=== PATIENT | male | born 1960 | race Caucasian/White ===

== ENCOUNTER 2018-05-24 09:17 | Emergency (ER) | payer MEDICAID, SELFPAY ==
[2018-05-24 09:19] VITALS: BP 130/83; PULSE 73; RESP 12; TEMP 35.8; O2SAT 100; BMI 20.9
[2018-05-24 10:39] LABS: Absolute Lymphocyte Count 0.63 X10^3/ul (0.83-4.51); Absolute Neutrophil Count 3.4 X10^3/uL (2.0-7.7); Basophil# 0.01 X10^3/uL; Basophil% 0.2 % (0-1); Hemoglobin 13.9 g/dl (13.0-16.5); Lymphocyte # 0.63 X10^3/ul (4.0); Lymphocyte % 14.4 % (19-41); Mean Corp Hgb Conc 33.1 g/gl (32-36); Mean Corpuscular Hgb 31.3 pg (27.0-32.0); Mean Corpuscular Volume 94.6 fL (80-94); Monocyte# 0.32 X10^3/uL; Monocyte% 7.3 % (0-10); Neutrophil # 3.43 X10^3/uL (2.7-7.7); Neutrophil % 78.1 % (47-70); Platelet Count 122 K/mm3 (150-450); RBC Distribution Width CV 11.8 % (11.6-14.6); RBC Distribution Width SD 40.2 fl (35.1-43.9); Red Blood Count 4.44 M/mm3 (4.6-6.2); White Blood Count 4.4 K/mm3 (4.4-11.0)
[2018-05-24 10:41] LABS: POSITIVE COUNT NO; POSITIVE DIFFERENTIAL NO; POSITIVE MORPHOLOGY NO
[2018-05-24 10:46] LABS: Bacteria 0 SEEN /hpf (None Seen); Mucous, Urine 0 SEEN /hpf (<or=2+); White Blood Cells 0 SEEN /hpf (0-5)
[2018-05-24 10:48] LABS: Anion Gap 9 (5-15); BUN 30 mg/dL (7-18); BUN/Creat Ratio 31.4 RATIO (10-20); Calcium,Total 8.5 mg/dL (8.5-10.1); Chloride 108 mmol/L (98-107); Creatinine, Serum 0.96 mg/dL (0.70-1.30); EST Glomerular Filtration Rate 86 mL/min (>60); Est Glom Filt Rate - Afr Amer 105 mL/min (>60); Estimated Creatinine Clearance 75.71 ml/min; Glucose 96 mg/dL (74-106); Potassium 4.5 mmol/L (3.5-5.1); Sodium Level 143 mmol/L (136-145)
[2018-05-24 10:51] VITALS: BP 120/81; PULSE 89; RESP 14; O2SAT 100
[2018-05-24 10:58] LABS: Color, Urine Yellow (Yellow); Glucose, Dipstick Normal (Normal); Ketone-Dipstick 15 mg/dl (Negative); Leukocyte Esterase-Dipstick Negative /ul (Negative); Nitrite-Dipstick Negative (Negative); Occult Blood-Urine 250 /ul (Negative); Protein-Dipstick 15 mg/dl (Negative); Urine Bilirubin Dipstick Negative (Negative); Urine Clarity Clear (Clear); Urine Urobilinogen Normal (Normal)
[2018-05-24 11:08] LABS: Red Blood Cells-Urine 25-50 SEEN /hpf (0-5); Squamous Epithelial Cells - UA 0-5 SEEN /hpf (0-5)
--- NOTE | 2018-05-24 11:15 | CT_ITS ---
STUDY: CT ABDOMEN AND PELVIS WITHOUT CONTRAST REASON FOR EXAM: Male, 57 years old. Right flank pain and hematuria. RADIATION DOSAGE (If Supplied By Facility): CTDIvol = ( 6.04 ) mGy, DLP = ( 271.80 ) mGycm TECHNIQUE: Transaxial images were obtained from the dome of the diaphragm to the symphysis pubis without oral contrast, and without intravenous contrast. Sagittal and coronal images were reconstructed. Individualized dose optimization techniques were used for this CT. COMPARISON: None. FINDINGS: The visualized lung bases are unremarkable. The visualized portions of the heart are within normal limits. Normal liver. Normal gallbladder and extrahepatic biliary system. Normal spleen. Normal pancreas. Normal bilateral adrenal glands. There is a 2.4 mm calculus in the lower pole calyx of the right kidney. There is a 3.8 mm calculus at the base of the bladder on the right side suggestive of a recently passed right ureteral calculus. Normal left kidney. Normal visualized stomach. Normal small intestine. Moderate amount of fecal material is seen throughout the colon. The appendix is visualized and appears normal. Normal abdominal aorta. Normal inferior vena cava. Normal retroperitoneum. Normal urinary bladder. Normal abdominal wall. Loss of the normal lumbar lordosis. CT/Abdomen/Pelvis without Cont IMPRESSION: 3.8 mm calculus at the right base of the bladder suggesting a recently passed right ureteral calculus. There is also evidence of a 2.4 mm acquisition the lower pole calyx of the right kidney. Electronically Signed: Jovan Valdez, at 11:58 EST , Service support ,
[2018-05-24 12:00] VITALS: RESP 12
--- NOTE | 2018-05-24 12:28 | ED.VISSUMM ---
- ER Visit Summary Date of Service: 05/24/18 Chief Complaint: Flank pain rectal pain History of Present Illness: The patient is a 57 M who states that for the past several days when he ever he goes to defecate he has had a sharp pain on his anus. He states it feels somewhat better when he pulls the right buttock away. His bowel movements have otherwise been normal. This morning around 7:00 lasting until around 0950 he had a severe right flank pain. He notes the urge to urinate but nothing significant comes out. History of hypothyroidism and osteoporosis. He sees Dr. Alarcon for primary care. Denies any blood in the stool. He denies any blood in the urine but does state that for years she has been told these had microscopic blood in the urine. No fevers. Physical Examination: Afebrile vital signs are stable Gen: Well-nourished well-developed Head: Normocephalic atraumatic Eyes: Perrl EOMI ENT: TMs clear no rhinorrhea moist mucous membranes Neck: Supple no lymphadenopathy no JVD nontender CVS: Regular rate rhythm no murmurs normal S1-S2 Respiratory: No distress clear to auscultation bilaterally chest nontender Abdomen: Soft nontender nondistended normal bowel sounds no masses : In the 11 o'clock position on the rectum appears to be a healing anal fissure. The rectal exam is otherwise unremarkable Back: Nontender Extremity: Nontender no edema Skin: Normal color no rash Neuro: alert orientated ?3 CN II-XII intact normal strength sensation reflexes gait cerebellar Psych: Normal affect normal mood Test Results: CBC and BMP were normal. Urinalysis to him straits 25-[address] of the abdomen pelvis without contrast demonstrates a 3.8 mm calculus most likely representing a passed kidney stone on the right. There is also a 2.4 mm calculus in the kidney. No significant hydronephroureter noted. Emergency Department Course and Treatment: Patient has been pain-free since he has been here. I will write for some Anusol for the healing anal fissure. He is to follow-up with primary care. Impression: 1. Anal fissure 2. Right kidney stone (passed) This note was generated with [employer] dictation software. It may contain incorrect words, spelling, and punctuation that were not noted in review of the chart prior to signing ED Disposition - Plan for ED Patient: Disposition: Home or Assisted Living Instructions: ED Fissure Anal Ch, ED Stone Renal Passed Prescriptions: Hydrocortisone Acetate Cream [Anusol Hc] 1 applic TOPICAL TID PRN PRN #30 g PRN Reason: anal pain Referrals: Morris Sheets MD [Primary Care Provider] - 1 Week if not improving
[2018-05-24 13:03] VITALS: PULSE 89; RESP 16
== END 2018-05-24 13:05 | disposition home or self-care (01) ==
PROVIDERS: Emergency Provider Emergency Medicine; Family Provider Family Medicine; PCP Family Medicine
DX: K60.2 Anal fissure, unspecified (principal); N20.0 Calculus of kidney; E03.9 Hypothyroidism, unspecified; M81.0 Age-related osteoporosis without current pathological fracture
CPT/HCPCS: 74176; 80048; 81001; 85025; 99284; A4216

== ENCOUNTER 2018-05-28 19:09 | Emergency (ER) | payer MEDICAID, SELFPAY ==
[2018-05-28 19:10] VITALS: BP 137/97; PULSE 95; RESP 16; TEMP 36.6; O2SAT 100; BMI 20.7
[2018-05-28 19:42] LABS: Bacteria 0 SEEN /hpf (None Seen); Mucous, Urine 0 SEEN /hpf (<or=2+); Red Blood Cells-Urine 0 SEEN /hpf (0-5); Squamous Epithelial Cells - UA 0 SEEN /hpf (0-5)
[2018-05-28 19:55] LABS: Color, Urine Yellow (Yellow); Glucose, Dipstick Normal (Normal); Ketone-Dipstick 15 mg/dl (Negative); Leukocyte Esterase-Dipstick Negative /ul (Negative); Nitrite-Dipstick Negative (Negative); Occult Blood-Urine Negative /ul (Negative); Protein-Dipstick Negative (Negative); Urine Bilirubin Dipstick Negative (Negative); Urine Clarity Clear (Clear); Urine Urobilinogen Normal (Normal)
[2018-05-28 19:59] LABS: White Blood Cells 0-5 SEEN /hpf (0-5)
--- NOTE | 2018-05-28 20:01 | ED.DCSUM_ITS ---
- ER Visit Summary Date of Service: 05/28/18 Chief Complaint: Right side abdominal pain, dark stools History of Present Illness: The patient is a 57 M patient returns evaluation of intermittent right sided abdominal pain. Was seen here 4 days ago diagnosed with ureteral stone per patient. He states he passed it 2 days ago and collected it. He states there is a stone above that for which he thinks is moving down. No nausea or vomiting. Also reports dark stools for the past week. He states this was mentioned when he was seen in the ED. He states exam performed, noting for sure she was sent home with Anusol. Denies anticoagulation medicines. He takes flaxseed to help with bowel movements. Sto ols are soft. No history of colonoscopy in the past. No family history of colon cancer. No fevers. No dysuria. He was not put on antibiotics. Records reviewed, noted a passed stone in his bladder 3.8 mm. He had a renal stone above that and not additional ureteral stone. He had a negative urine. There is reported healing anal fissure. Physical Examination: General: Alert and oriented ?3, no acute distress HEENT: Normocephalic, atraumatic. Moist mucosa membranes Neck: supple, nontender. Cardiovascular: Regular rate and rhythm, no murmurs Respiratory: Normal breath sounds, symmetric, no distress Abdomen: Soft, nontender, nondistended Rectal: Nonthrombosed hemorrhoid anterior position, there was no active bleeding. There is brown stools, Hemoccult positive Extremities: Nontender, no edema, pulses intact ?4 Neuro: no focal neurological deficits. Test Results: Stone analysis pending. UA: Negative for bladder infection. Emergency Department Course and Treatment: Patient vital signs stable. Stone was sent for analysis, reports other stones inside his kidney, not likely moving down at this point. Urine was negative for blood or infection. His guaiac test was positive with brown stools. He is 57 with no colonoscopy history. No family history of colon cancer per patient. Hemoglobin 13.9, 4 days ago he is ambulating clinically no signs of anemia. I did discuss with on-call surgeon Dr. Mohr will see him as an outpatient Wednesday or Wednesday for outpatient workup. Signs and symptoms discussed to return. All questions were answered. Treatment Plan: [] Disposition: Discharge Impression: 1. Rectal bleed stable 2. Passed kidney stone This note was generated with Dragon dictation software. It may contain incorrect words, spelling, and punctuation that were not noted in review of the chart prior to signing ED Disposition - Plan for ED Patient: Disposition: Home or Assisted Living Diagnosis: Rectal bleed, Past kidney stone Instructions: ED Stone Renal Passed, Evaluating and Treating Rectal Bleeding Referrals: Morris Sheets MD [Primary Care Provider] - Izaiah Daley MD [STAFF PHYSICIAN] - 05/30/18
[2018-05-28 20:48] VITALS: PULSE 91; RESP 16; O2SAT 99
[2018-06-02 20:08] LABS: Ca Oxalate, Monohydrate 90 % (.); Calcium Phosphate 10 % (.); Size 3x3x2 mm (.)
== END 2018-05-28 20:48 | disposition home or self-care (01) ==
PROVIDERS: Emergency Provider Emergency Medicine; Family Provider Family Medicine; PCP Family Medicine
DX: K62.5 Hemorrhage of anus and rectum (principal); N20.0 Calculus of kidney; K64.9 Unspecified hemorrhoids
CPT/HCPCS: 81001; 82274; 82360; 99282

== ENCOUNTER 2018-05-30 09:31 | Outpatient (RCR) | payer SELFPAY | END 2018-06-19 23:59 | LOC: NS 09:31 | PROVIDERS: Family Provider Family Medicine; PCP Family Medicine; Visit Provider Psychiatry & Neurology Neurology | DX: R69 Illness, unspecified (principal); Z71.3 Dietary counseling and surveillance | CPT/HCPCS: 97802 ==

== ENCOUNTER 2018-06-27 09:54 | Outpatient (RCR) | payer MEDICAID, SELFPAY | END 2018-06-27 23:59 | disposition home or self-care (01) | LOC: NS 09:54 | PROVIDERS: Family Provider Family Medicine; PCP Family Medicine; Visit Provider Family Medicine | DX: N20.0 Calculus of kidney (principal); Z71.3 Dietary counseling and surveillance | CPT/HCPCS: 97803 ==

== ENCOUNTER 2018-07-25 10:14 | Outpatient (RCR) | payer MEDICAID, SELFPAY | END 2018-08-19 23:59 | LOC: NS 10:14 | PROVIDERS: Family Provider Family Medicine; PCP Family Medicine; Visit Provider Family Medicine | DX: N20.0 Calculus of kidney (principal) | CPT/HCPCS: 97803 ==

== ENCOUNTER 2019-02-19 03:41 | Emergency (ER) | payer MEDICAID, SELFPAY ==
[2019-02-19 03:42] VITALS: BP 137/93; PULSE 62; RESP 15; TEMP 36.4; O2SAT 100; BMI 20.6
--- NOTE | 2019-02-19 04:08 | EKG12_ITS ---
Test Reason : CP Blood Pressure : / mmHG Vent. Rate : 047 BPM Atrial Rate : 047 BPM P-R Int : 134 ms QRS Dur : 080 ms QT Int : 436 ms P-R-T Axes : 054 046 054 degrees QTc Int : 385 ms Sinus bradycardia Otherwise normal ECG Confirmed by LUIS MIGUEL OVIEDO MD ([id number]), purchase request editor SHARIF KOENIG ([id number]) on 02/20/2019 2:50:57 PM Referred By: BB Confirmed By:LUIS MIGUEL OVIEDO MD
--- NOTE | 2019-02-19 04:09 | ED.DCSUM_ITS ---
History of Present Illness Chief Complaint: Chest Pain Informant: Patient Onset: Hours - 4 Activity at onset: Sleep Timing: Continuous Quality: Sharp Location: Left Chest Current Severity: Moderate Maximum Severity: Moderate Worsened By: - - lying supine Relieved By: - - sitting up Associated Symptoms: Negative for: Nausea, Vomiting, Diaphoresis, Dyspnea, Cough, Fever, Lightheadedness, Acid Reflux, Palpitations Narrative: Awoke with the symptoms. Having trouble going to sleep because every time he lies down he gets worse. States he can feel it a little more if he takes a deep breath but has not noticed a major pleuritic component prior to evaluation. No history of DVT or PE. No recent leg pain or swelling. No recent injuries or muscular overuse. Cannot palpated and reproduce it or achy worse with movement. There is no radiation of the discomfort, no back or arm discomfort. No near syncope or syncope. No recent illnesses. Prior Similar Symptoms: No Recent Illness/Hospitalization: No CVD Risk Factors: Negative for: Hypertension, Diabetes, Hypercholesterolemia, Family History 1' </=55 PE Risk Factors: Negative for: Recent Travel/Surgery, Recenet Immobilization, Prior DVT or PE, Cancer, OCP + Smoking + >/=35 Past Medical History - Allergies and Home Meds Allergies/Adverse Reactions: Allergies No Known Allergies Allergy (Verified 02/19/19 03:45) Primary Care Physician: Morris Sheets MD [Primary Care Provider] - Past Medical History: None Surgical History: no surgical history Lives: Alone Smoking Status: Never smoker Drugs: None Review of Systems General: Denies: Chills, Fever, Sweats Eyes: Denies: Visual changes - bilaterally, Diplopia ENT: Denies: Rhinorrhea, Sore throat Cardiovascular: Reports: Chest pain. Denies: Palpitations Respiratory: Denies: Dyspnea, Cough, Dyspnea on exertion Gastrointestinal: Denies: Abdominal pain, Nausea, Vomiting, Diarrhea, Melena, Hematochezia Genitourinary: Denies: Dysuria, Hematuria, Frequency Musculoskeletal: Denies: Back pain, Swelling, Extremity Pain Skin: Denies: Rash, Wounds Neurological: Denies: Headache, Weakness, Numbness Physical Exam Vital Signs/Narrative: Vital Signs Temp Pulse Resp BP Pulse Ox 02/19/19 03:42 97.6 F L 62 15 137/93 H 100 Inital Vital Signs reviewed: Yes General: Well nourished, Well developed, No Acute Distress Head: Normocephalic, Atraumatic Eyes: Perrl, EOMI ENT: Moist mucous membranes, No rhinorrhea Neck: Supple, Nontender Cardiovascular: Regular rate, Regular rhythm, No murmurs Respiratory: No distress, CTA bilaterally, Chest nontender Abdomen: Soft, Nontender, Nondistended, Normal bowel sounds Back: Nontender, Normal Inspection Extremities: Nontender, No edema. Negative for: Calf Tenderness Skin: Normal color, No rash, No Trauma Neurological: Alert, Oriented x3, Cranial nerves II-XII grossly intact, Normal Strength, Normal Sensation Psychological: Normal affect, Normal Mood Diagnostic/Tx/Re-eval Impressions Chest X-Ray 02/19/19 04:27 IMPRESSION: Normal x-ray examination of the chest for age. Electronically Signed: Crystal Freeman MD at 5:00 EST , Service support , 02/19/19 04:27 Chest PA and Lateral [RAD] Stat Laboratory Results 02/19/19 02/19/19 02/19/19 04:00 04:00 04:00 WBC 4.2 L RBC 4.16 L Hgb 13.0 Hct 39.1 L MCV 94.0 MCH 31.3 MCHC 33.2 RDW Std Deviation 40.2 RDW Coeff of Zoila 11.7 Plt Count 135 L MPV 10.6 Immature Gran % (Auto) 0.200 Neut % (Auto) 37.0 L Lymph % (Auto) 49.6 H [place] % (Auto) 11.8 H Eos % (Auto) 1.2 Baso % (Auto) 0.2 Absolute Neuts (auto) 1.5 L Absolute Lymphs (auto) 2.06 Nucleated RBC % 0 D-Dimer Quant (PE/DVT) 0.30 Sodium 140 Potassium 4.2 Chloride 108 H Carbon Dioxide 27.0 Anion Gap 5 BUN 25 H Creatinine 0.86 Estim Creat Clear Calc 84.98 Est GFR (MDRD) Af Amer 117 Est GFR (MDRD) Non-Af 97 BUN/Creatinine Ratio 28.9 H Glucose 87 Calcium 8.3 L Troponin I < 0.015 - Rhythm Strip Rhythm Strip: Sinus Rhythm Rate: 50 Ectopy: None - EKG Initial EKG Interpretation: No Acute Injury Pattern - Normal EKG, Sinus Bradycardia Treatment: GI Cocktail Repeat Eval: 03/31 TERA Risk: No Positive TERA Elements Score: 0 - Medical Decision Making Heart score is 1 for age only. He prefers not to perform 3-hour delta troponin. I do not feel this is likely acute coronary syndrome/angina. He was given a GI cocktail and he does feel improved afterwards but he cannot tell if the medication did it or not. Sitting up now he states the pain is better and just barely present and not very pleuritic in nature. Differential here includes esophageal disorders, but I see no evidence of pneumomediastinum to suggest perforation, pleurisy and pericarditis are noted possibilities which I discussed with the patient and the recommendation to use ibuprofen if symptoms persist. I see no evidence of pericarditis on his EKG, however there is a spectrum and continue him of EKG changes and the natural progression of that disease. I think at this point he is stable to be discharged and follow-up as an outpatient which she is comfortable doing with the risk of 1.7% of myocardial endpoint/event. ED Disposition - Plan for ED Patient: Disposition: Home or Assisted Living Diagnosis: Left-sided chest pain Instructions: CHEST PAIN, Uncertain Cause Referrals: Morris Sheets MD [Primary Care Provider] - 3-5 Days if not improving
[2019-02-19] MEDS: Mag Hydrox/Al Hydrox/Simeth 30 ML UDC PO (04:15)
[2019-02-19 04:18] LABS: Absolute Lymphocyte Count 2.06 X10^3/uL (0.83-4.51); Absolute Neutrophil Count 1.5 X10^3/uL (2.0-7.7); Basophil# 0.01 X10^3/uL; Basophil% 0.2 % (0-1); Eosinophil# 0.05 X10^3/uL; Eosinophils% 1.2 % (0-5); Hematocrit 39.1 % (40-54); Lymphocyte # 2.06 X10^3/ul (4.0); Lymphocyte % 49.6 % (19-41); Mean Corp Hgb Conc 33.2 g/dL (32-36); Mean Corpuscular Hgb 31.3 pg (27.0-32.0); Mean Platelet Vol. 10.6 fl (6.2-12.0); Monocyte# 0.49 X10^3/uL; Monocyte% 11.8 % (0-10); NRBC Flagged by Analyzer 0 % (0-5); Neutrophil # 1.53 X10^3/uL (2.7-7.7); Platelet Count 135 K/mm3 (150-450); RBC Distribution Width CV 11.7 % (11.6-14.6); RBC Distribution Width SD 40.2 fl (35.1-43.9); Red Blood Count 4.16 M/mm3 (4.6-6.2); White Blood Count 4.2 K/mm3 (4.4-11.0)
--- NOTE | 2019-02-19 04:27 | RAD_ITS ---
STUDY: X-RAY CHEST REASON FOR EXAM: Male, 58 years old. Left-sided chest pain. TECHNIQUE: PA and lateral views of the chest. COMPARISON: None. FINDINGS: The lungs are clear and expanded. There is no demonstrated pleural abnormality. Normal size heart. Normal mediastinum and marlon. Normal visualized pulmonary arteries. Normal visualized aortic arch and descending thoracic aorta. There are mild degenerative changes of the visualized thoracic spine. Normal visualized ribs, clavicles, and shoulders. There is no demonstrated abnormality of the visualized soft tissue structures of the upper abdomen. RAD/Chest PA and Lateral IMPRESSION: Normal x-ray examination of the chest for age. Electronically Signed: Crystal Freeman MD at 5:00 EST , Service support ,
[2019-02-19 04:31] LABS: Anion Gap 5 (5-15); BUN 25 mg/dL (7-18); BUN/Creat Ratio 28.9 RATIO (10-20); Calcium,Total 8.3 mg/dL (8.5-10.1); Chloride 108 mmol/L (98-107); Creatinine, Serum 0.86 mg/dL (0.70-1.30); EST Glomerular Filtration Rate 97 mL/min (>60); Est Glom Filt Rate - Afr Amer 117 mL/min (>60); Estimated Creatinine Clearance 84.98 ml/min; Glucose 87 mg/dL (74-106); Potassium 4.2 mmol/L (3.5-5.1); Sodium Level 140 mmol/L (136-145)
[2019-02-19 05:29] VITALS: BP 137/93; PULSE 60; RESP 15; O2SAT 98
== END 2019-02-19 05:36 | disposition home or self-care (01) ==
PROVIDERS: Emergency Provider Emergency Medicine; Family Provider Family Medicine; PCP Family Medicine
DX: R07.89 Other chest pain (principal)
CPT/HCPCS: 71046; 80048; 84484; 85025; 85379; 93005; 99285

== ENCOUNTER 2020-03-05 01:26 | Emergency (ER) | payer MEDICAID, SELFPAY ==
[2020-03-05 01:26] VITALS: BP 137/88
[2020-03-05 01:27] VITALS: BP 154/86; PULSE 65; RESP 16; TEMP 37; O2SAT 100; BMI 21.1
--- NOTE | 2020-03-05 01:53 | ED.DCSUM_ITS ---
History of Present Illness Chief Complaint: Other, Pain/Inj Informant: Patient Onset: Weeks Context: Gradual Onset Timing: Continuous Current Severity: Moderate Maximum Severity: Moderate Narrative: Patient is a 59-year-old male who presents to the emergency department with complaints of finger discoloration. The patient states this is been going on for a few weeks. He is seen his primary care. He had x-rays done. He states that nothing was found. He states that it initially was just the dorsum of his right third finger. He states now it seems like it is more on his right fifth finger also. He denies any pain. He does not smoke. He does have history of thyroid disease, but no other autoimmune conditions. He states it does seem to get worse in the cold. He denies any change in sensation. He is otherwise been in his normal state of health. Prior similar symptoms: No Recent Illness/Hospitalization: No Past Medical History - Allergies and Home Meds Allergies/Adverse Reactions: Allergies No Known Allergies Allergy (Verified 02/19/19 03:45) Primary Care Physician: Morris Sheets MD [Primary Care Provider] - Prior records reviewed: Yes Past Medical History: - - Thyroid disease Surgical History: no surgical history Smoking Status: Never smoker Review of Systems General: Denies: Chills, Fever, Sweats Eyes: Denies: Visual changes - bilaterally, Diplopia ENT: Denies: Rhinorrhea, Sore throat Cardiovascular: Denies: Chest pain, Palpitations Respiratory: Denies: Dyspnea, Cough, Dyspnea on exertion Gastrointestinal: Denies: Abdominal pain, Nausea, Vomiting, Diarrhea, Melena, Hematochezia Genitourinary: Denies: Dysuria, Hematuria, Frequency Musculoskeletal: Denies: Back pain, Extremity Pain Skin: Denies: Rash, Wounds Neurological: Denies: Headache, Weakness, Numbness Physical Exam Vital Signs/Narrative: Vital Signs Temp Pulse Resp BP Pulse Ox 03/05/20 01:27 98.6 F 65 16 154/86 H 100 03/05/20 01:26 137/88 H Inital Vital Signs reviewed: Yes General: Well nourished, Well developed, No Acute Distress Head: Normocephalic, Atraumatic Eyes: Perrl, EOMI ENT: Moist mucous membranes, No rhinorrhea Neck: Supple, Nontender Cardiovascular: Regular rate, Regular rhythm, No murmurs Respiratory: No distress, CTA bilaterally, Chest nontender Abdomen: Soft, Nontender, Nondistended, Normal bowel sounds Back: Nontender, Normal Inspection Extremities: No edema, Tenderness - Patient has some purple ecchymosis like tension to the dorsum of his right third finger. There is also scant aperients on the dorsum of the right fifth finger. His cap refill is less than 2 seconds. Flexion extension are preserved. Pulses in the hand are normal. Skin: Normal color, No rash Neurological: Alert, Oriented x3, Cranial nerves II-XII grossly intact, Normal Strength, Normal Sensation Psychological: Normal affect, Normal Mood Diagnostic/Tx/Re-eval Abnormal Lab Results 03/05/20 03/05/20 03/05/20 01:55 01:55 01:55 WBC 7.3 RBC 4.07 L Hgb 13.0 Hct 37.9 L MCV 93.1 MCH 31.9 MCHC 34.3 RDW Std Deviation 39.8 RDW Coeff of Zoila 11.8 Plt Count 142 L MPV 11.0 Immature Gran % (Auto) 0.300 Neut % (Auto) 73.7 H Lymph % (Auto) 18.0 L [place] % (Auto) 8.0 Eos % (Auto) 0.0 Baso % (Auto) 0.0 Absolute Neuts (auto) 5.4 Absolute Lymphs (auto) 1.31 Nucleated RBC % 0 ESR 3 PT 12.3 INR 1.0 APTT 25.2 Sodium 141 Potassium 3.9 Chloride 108 H Carbon Dioxide 29.0 Anion Gap 4 L BUN 29 H Creatinine 0.81 Estim Creat Clear Calc 88.65 Est GFR (MDRD) Af Amer 126 Est GFR (MDRD) Non-Af 104 BUN/Creatinine Ratio 35.9 H Glucose 111 H Calcium 8.4 L Total Bilirubin 0.30 AST 11 L ALT 26 Alkaline Phosphatase 60 Total Protein 7.1 Albumin 3.9 Globulin 3.2 Albumin/Globulin Ratio 1.2 - Medical Decision Making Clinically, his situation seems almost like a Raynaud's phenomenon. He does have some discoloration that is nonpainful. He is able to flex and extend the fingers. He is also had negative x-rays. Metabolic work-up was pursued and is relatively unremarkable. Coagulopathy is not found. Platelets were mildly decreased at 142, otherwise labs are unremarkable. I do feel that the most prudent plan of care will be to place patient on a low-dose calcium channel abner to see if it improves his symptoms along with follow-up with his guest service host as scheduled. He is comfortable with this plan of care. Impression 1. Raynaud's phenomenon right hand ED Disposition - Plan for ED Patient: Instructions: Raynaud Disease Prescriptions: Amlodipine [Norvasc] 2.5 mg PO DAILY #30 tab Prescription Printed Referrals: Morris Sheets MD [Primary Care Provider] -
[2020-03-05 02:02] LABS: Absolute Lymphocyte Count 1.31 X10^3/uL (0.83-4.51); Absolute Neutrophil Count 5.4 X10^3/uL (2.0-7.7); Hematocrit 37.9 % (40-54); Lymphocyte # 1.31 X10^3/ul (4.0); Mean Corp Hgb Conc 34.3 g/dL (32-36); Mean Corpuscular Hgb 31.9 pg (27.0-32.0); Mean Corpuscular Volume 93.1 fL (80-94); Monocyte# 0.58 X10^3/uL; NRBC Flagged by Analyzer 0 % (0-5); Neutrophil # 5.38 X10^3/uL (2.7-7.7); Neutrophil % 73.7 % (47-70); Platelet Count 142 K/mm3 (150-450); RBC Distribution Width CV 11.8 % (11.6-14.6); RBC Distribution Width SD 39.8 fl (35.1-43.9); Red Blood Count 4.07 M/mm3 (4.6-6.2); White Blood Count 7.3 K/mm3 (4.4-11.0)
[2020-03-05 02:07] LABS: Erythrocyte Sedimentation Rate 3 mm/hr (0-20)
[2020-03-05 02:09] LABS: Prothrombin Time (Protime)PT. 12.3 SECONDS (11.7-14.9)
[2020-03-05 02:10] LABS: Partial Thromboplast Time 25.2 Seconds (24.1-36.2)
[2020-03-05 02:16] LABS: ALB/GLOB Ratio 1.2 RATIO (0.9-2.4); AST(SGOT) 11 U/L (15-37); Alanine Aminotransfer ALT/SGPT 26 U/L (16-61); Albumin, Serum 3.9 g/dL (3.2-5.0); Alkaline Phosphatase 60 U/L (45-117); Anion Gap 4 (5-15); BUN 29 mg/dL (7-18); BUN/Creat Ratio 35.9 RATIO (10-20); Calcium,Total 8.4 mg/dL (8.5-10.1); Chloride 108 mmol/L (98-107); Creatinine, Serum 0.81 mg/dL (0.70-1.30); EST Glomerular Filtration Rate 104 mL/min (>60); Est Glom Filt Rate - Afr Amer 126 mL/min (>60); Estimated Creatinine Clearance 88.65 ml/min; Globulin 3.2 g/dL (2.2-4.2); Glucose 111 mg/dL (74-106); Potassium 3.9 mmol/L (3.5-5.1); Protein, Total 7.1 g/dL (6.4-8.2); Sodium Level 141 mmol/L (136-145)
[2020-03-05 02:40] VITALS: O2SAT 99
== END 2020-03-05 02:49 | disposition home or self-care (01) ==
LOC: ED 02:11
PROVIDERS: Emergency Provider Emergency Medicine; PCP Family Medicine
DX: I73.00 Raynaud's syndrome without gangrene (principal); E07.9 Disorder of thyroid, unspecified
CPT/HCPCS: 80053; 85025; 85610; 85652; 85730; 99284; A4216

== ENCOUNTER → 2020-07-30 08:34 | Outpatient (CLI) | payer MEDICAID, SELFPAY ==
--- NOTE | 2020-07-30 08:38 | ECHOD_ITS ---
Reason For Study: other general symptoms and signs Procedure This was a 2D Doppler, Color Flow transthoracic echocardiogram. The study was technically difficult. Exam performed in department. Left Ventricle Normal LV size. Apical false tendon noted. Left ventricular systolic function is normal. The estimated ejection fraction is 55 %. No evidence for diastolic dysfunction. No regional wall motion abnormalities noted. Right Ventricle Normal RV size. Normal systolic function. Atria Normal left atrium. Normal right atrium. No doppler evidence for ASD. Mitral Valve There is no mitral annular calcification. Normal mitral valve. Mild (1+) mitral valve insufficiency. Tricuspid Valve Normal tricuspid valve. Mild tricuspid valve insufficiency. Right ventricular systolic pressure estimated to be 26 mmHg. Aortic Valve Trisinus/trileaflet aortic valve. Mild focal aortic valve thickening. Pulmonic Valve The pulmonic valve is not well visualized. Great Vessels The aortic root is not well visualized. Pericardium/Pleural No pericardial effusion. MMode/2D Measurements & Calculations LVIDd: 4.7 cm IVSd: 1.0 cm LA dimension: 3.3 cm LVIDs: 3.4 cm LVPWd: 1.1 cm RVDd: 3.7 cm FS: 29.1 % LAV(MOD-bp): 46.9 ml LA A4 area: 19.9 cm2 RA A4 area: 18.2 cm2 LAV(MOD-bp) Indexed: 27.3 ml/m2 LAV(MOD-sp2): 36.6 ml LAV(MOD-sp4): 50.8 ml Time Measurements MV dec time: 0.25 sec Doppler Measurements & Calculations MV E max rogelio: 106.2 cm/sec Lat Peak E' Rogelio: 13.9 cm/sec Med Peak E' Rogelio: 9.4 cm/sec MV A max rogelio: 78.7 cm/sec E/E' lat: 7.6 E/E' med: 11.4 MV E/A: 1.3 MV V2 max: 100.3 cm/sec MV P1/2t max rogelio: 100.8 cm/sec Ao V2 max: 102.5 cm/sec MV max P.0 mmHg MV P1/2t: 103.7 msec Ao max P.2 mmHg MV V2 mean: 47.9 cm/sec MV dec slope: 284.7 cm/sec2 MV mean P.2 mmHg MVA(P1/2t): 2.1 cm2 MV V2 VTI: 36.4 cm LV V1 max: 93.3 cm/sec PA V2 max: 100.2 cm/sec TR max rogelio: 238.0 cm/sec LV V1 max P.5 mmHg TR max P.7 mmHg ECHO/Echo Complete Interpretation Summary The study was technically difficult. Left ventricular systolic function is normal. The estimated ejection fraction is 55 %. Apical false tendon noted. Mild (1+) mitral valve insufficiency. Mild tricuspid valve insufficiency. Mild focal aortic valve thickening. Right ventricular systolic pressure estimated to be 26 mmHg. No evidence for diastolic dysfunction. Ordering Physician: Ángel Napoles Referring Physician: Ángel Napoles Performed By: Reynaldo Collado RCS
--- NOTE | 2020-07-30 08:38 | CDU_ITS ---
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 Velocities/BP Lt. Velocities/BP Prox CCA 75.5/12.9 cm/sec. Prox CCA 67.2/11.1 cm/sec. Mid CCA 80.7/20.7 cm/sec. Mid CCA 80.0/21.1 cm/sec. Dist CCA 80.7/23.3 cm/sec. Dist CCA 83.8/23.0 cm/sec. Prox ICA 66.6/23.6 cm/sec. Prox ICA 74.4/22.1 cm/sec. Mid ICA 83.2/27.8 cm/sec. Mid ICA 60.4/24.9 cm/sec. Dist ICA 57.0/12.1 cm/sec. Dist ICA 67.8/27.7 cm/sec. Rt. ICA/CCA = 83.2/80.7=1.0. Lt. ICA/CCA = 74.4/83.8=0.9. Prox ECA 135.0/30.9 cm/sec. Prox ECA 80.0/10.8 cm/sec. Rt. Vert. 39.3/14.4 cm/sec. Lt. Vert. 77.2/20.2 cm/sec. Right Extracranial There is no significant atherosclerotic plaque noted in the right common carotid artery. There is intimal thickening but no significant atherosclerotic plaque noted in the right internal carotid artery. There is homogeneous, smooth atherosclerotic plaque noted in the right external carotid artery. Antegrade flow is noted in the right vertebral artery. Left Extracranial There is no significant atherosclerotic plaque noted in the left common carotid artery. There is intimal thickening but no significant atherosclerotic plaque noted in the left internal carotid artery. There is no significant atherosclerotic plaque noted in the left external carotid artery. Antegrade flow is noted in the left vertebral artery. Vert A difficult to interrogate. Procedure Carotid Duplex [id number]. Exam performed in department. VL/Carotid Duplex Ultrasound Interpretation Summary No significant atherosclerotic plaque or stenosis noted in the internal carotid arteries bilaterally. Flow within the vertebral arteries is antegrade bilaterally. Ordering Physician: Ángel Napoles Referring Physician: Morris Sheets Performed By: Alison Guajardo, HERLINDA, RVT
== END ==
PROVIDERS: PCP Family Medicine; Referring Provider Ophthalmology; Visit Provider Ophthalmology
DX: H34.212 Partial retinal artery occlusion, left eye (principal)
CPT/HCPCS: 93306; 93880

== ENCOUNTER 2021-01-12 04:29 | Emergency (ER) | payer MEDICAID, SELFPAY ==
[2021-01-12 04:30] VITALS: BP 144/96; PULSE 65; RESP 16; TEMP 36.8; O2SAT 100; BMI 19.9
[2021-01-12] MEDS: Fluorescein 1 MG STRIP 1 STRIP OPHTHALMIC (04:54)
[2021-01-12] MEDS: Tetracaine 0.5% Ophthalmic Bottle 1 DRP OPHTHALMIC (04:55)
--- NOTE | 2021-01-12 05:05 | EX.ED.VIS.EY ---
HPI History of Present Illness Chief Complaint: Eye Problem Informant: patient Narrative Narrative: Presents with foreign body sensation to the right eye. Awakened with the symptoms. States been trying for 2 hours however symptoms worsen. Worse with bright lights. Patient wears glasses. Last eye check [address] Napoles. He states he was recommended bifocals. Denies headache. Denies nausea or vomiting. Denies any injuries. PFSH PFS Medical History Hypothyroid Home Medications cholecalciferol (vitamin D3) 50,000 unit PO Q14D 05/24/18 [History Last Taken Unknown] levothyroxine 112 mcg PO DAILY 05/24/18 [History Last Taken Unknown] bacitracin 1 applic LEFT EYE Q8H 7 Days #3.5 g 01/12/21 [Rx Last Taken Unknown] Allergy/AdvReac Type Severity Reaction Status Date / Time No Known Allergies Allergy Verified 01/12/21 04:32 Social History Smoking Status: Never smoker ROS ROS ED Constitutional Constitutional ED: Denies chills, fever(s) or sweats Eyes Eyes: Reports other Details: Foreign body sensation right eye ; Denies change in vision ENT ENT ED: Denies dysphagia or sore throat Cardiovascular Cardiovascular: Denies chest pain, leg edema, palpitations or racing heartbeat Respiratory/Chest Respiratory/Chest: Denies cough, dyspnea or dyspnea on exertion Gastrointestinal Gastrointestinal: Denies abdominal pain, diarrhea, nausea or vomiting Genitourinary Genitourinary ED: Denies dysuria, hematuria or urinary frequency Musculoskeletal Musculoskeletal: Denies back pain, extremity pain or neck pain Integumentary Denies rash or wounds Neurologic Neurologic: Denies headache(s), paresthesias or weakness EXAM Physical Exam Const Vital Signs: 01/12/21 04:30 Temperature 98.2 F Temperature Source Oral Pulse Rate 65 Respiratory Rate 16 Blood Pressure 144/96 H Blood Pressure Mean 112 Pulse Ox 100 Oxygen Delivery Method Room Air Positive well nourished and well developed General Appearance ED: well developed and NAD HEENT Reports moist mucous membranes normocephalic and atraumatic Eyes PERRL, EOMs intact bilaterally and conjunctivae normal Eyes Narrative: Visual acuity after tetracaine corrected: 20/30 OD, 20/30 OS, 20/25 OU. Right eye examination after tetracaine instilled. Moist Q-tip ran along the lid margins upper and lower, eyelids everted. With slit-lamp examination noted clear lint lower eyes which was removed. Fluorescein with slit lamp examination noted circular uptake read the mid cornea just lateral towards the 3 o'clock position. There is no abrasions. Neck no lymphadenopathy and supple General: Negative for tenderness Chest Wall Chest: Negative for tenderness Resp normal respiratory effort and normal air movement Effort and Inspection: symmetric chest movement; Negative for respiratory distress Cardio regular rate, regular rhythm and no murmurs Peripheral Pulses: pulses 2+ throughout GI normal to inspection, nondistended, normoactive bowel sounds and non-tender Palpation: Negative for guarding or rebound tenderness present Back/Spine no CVA tenderness and no thoracic nor lumbar tenderness Extremity normal to inspection General Extremety ED: Negative for edema or tenderness General Extremity: Negative for edema Neuro oriented x3 and no sensory deficits noted Sensorium / Orientation: awake and alert Skin no rashes or lesions noted and no wounds MDM MDM MDM Narrative Medical decision making narrative: Patient visual acuity intact. Pupils equal and reactive. No midpoint dilated pupil. There is little foreign body is removed also circular uptake just towards the 3 o'clock position in mid cornea. Discussed with patient possibility of early corneal ulcer. He is placed on antibiotic ointment to use 3 times a day. He will call his eye doctor tomorrow for close outpatient follow-up. All questions were answered. 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 Use antibiotic ointment as prescribed. Follow-up with Dr. Napoles on Wednesday for reevaluation and additional treatments as needed. Disposition Disposition: Home, Self Care Discharge Date/Time: 01/12/21 05:36
--- NOTE | 2021-01-12 05:35 | ED.RN ---
Patient will fill atb ointment at pharm instead of waiting here
== END 2021-01-12 05:36 | disposition home or self-care (01) ==
LOC: ED 05:04
PROVIDERS: Emergency Provider Emergency Medicine; PCP Family Medicine
DX: H16.002 Unspecified corneal ulcer, left eye (principal); E03.9 Hypothyroidism, unspecified; Z79.899 Other long term (current) drug therapy
CPT/HCPCS: 99283

== ENCOUNTER 2021-07-30 21:56 | Emergency (ER) | payer MEDICAID, SELFPAY ==
[2021-07-30 21:57] VITALS: BP 120/101; PULSE 105; RESP 22; TEMP 37.3; O2SAT 91
--- NOTE | 2021-07-30 22:04 | EX.ED.DYSGE1 ---
HPI History of Present Illness Chief Complaint: Cough Informant: patient Narrative Narrative: Two 10-year-old male presenting to the emergency department with chief complaint of cough. Patient states that 2 days ago he was mowing the lawn and there was a tree with a lot of pollen that came out of it. He states that later that on he developed a runny nose and a cough. He states he has been coughing so much he cannot catch his breath and earlier tonight he almost passed out. He denies any fevers. No sore throat. [facility] Medical History Hypothyroid Home Medications cholecalciferol (vitamin D3) 50,000 unit PO Q14D 05/24/18 [History Last Taken Unknown] levothyroxine 112 mcg PO DAILY 05/24/18 [History Last Taken Unknown] bacitracin 1 applic LEFT EYE Q8H 7 Days #3.5 g 01/12/21 [Rx Last Taken Unknown] Allergy/AdvReac Type Severity Reaction Status Date / Time No Known Allergies Allergy Verified 07/30/21 21:57 Social History (Updated 07/30/21 @ 22:[address] Srinivas Abarca, ) current gender identity: male Smoking Status: Never smoker ROS ROS ED Constitutional Constitutional ED: Denies chills or weight loss Eyes Eyes: Denies change in vision or diplopia ENT ENT ED: Reports rhinorrhea; Denies ear pain or sore throat Cardiovascular Cardiovascular: Denies chest pain, orthopnea, palpitations or racing heartbeat Respiratory/Chest Respiratory/Chest: Reports cough; Denies dyspnea or orthopnea Gastrointestinal Gastrointestinal: Denies abdominal pain, diarrhea, nausea or vomiting Genitourinary Genitourinary ED: Denies dysuria, hematuria or urinary frequency Musculoskeletal Musculoskeletal: Denies arthralgias or myalgias Integumentary Denies abscess or rash Neurologic Neurologic: Denies headache(s) or weakness Psychiatric Psychiatric: Denies anxiety, depression, suicidal ideation or suicidal thoughts Endocrine Endocrinology: Denies polydipsia, polyphagia or polyuria Allergic/Immunologic Allergic/Immunologic ED: Denies mouth swelling, tongue swelling or urticaria EXAM Physical Exam Const Vital Signs: 07/30/21 21:57 Temperature 99.1 F Temperature Source Temporal Pulse Rate 105 H Respiratory Rate 22 H Blood Pressure 120/101 H Blood Pressure Mean 107 Pulse Ox 91 Oxygen Delivery Method Room Air Positive well nourished and well developed General Appearance ED: well developed HEENT Reports normocephalic, head/scalp atraumatic, TM's clear and moist mucous membranes HEENT Narrative: Mild turbinate edema I do not see any postnasal drip Uvula does not appear swollen Negative for trauma Tympanic Membrane ED: Yes TM's clear Eyes PERRL and EOMs intact bilaterally Neck no lymphadenopathy, supple and no JVD Resp normal respiratory effort and clear to auscultation bilaterally Resp Narrative: Patient has a very frequent throat cough. Cardio regular rate, regular rhythm and no murmurs GI normal to inspection, nondistended, normoactive bowel sounds and non-tender Palpation: soft Back/Spine no CVA tenderness and normal ROM Extremity normal to inspection General Extremety ED: Negative for edema General Extremity: Negative for edema Neuro oriented x3 and CN's II-XII intact bilaterally Sensorium / Orientation: alert Motor Exam: strength 5/5 throughout Psych mental status grossly normal Mood & Affect: Negative for depressed or tearful Skin no rashes or lesions noted and no wounds Discharge Plan Triage Chief Complaint: Cough ED Provider: Srinivas Abarca Dx/Rx/DC Orders Prescriptions: No Action levothyroxine 112 MCG tablet 112 mcg PO DAILY RF: 0 cholecalciferol (vitamin D3) 50,000 UNIT capsule 50,000 unit PO Q14D RF: 0 bacitracin 500 unit/gram ointment 1 applic LEFT EYE Q8H 7 Days Qty: 3.5 RF: 0 Primary Care Provider: Morris Sheets
[2021-07-30] MEDS: predniSONE 20 MG Tablet 60 MG PO (22:14)
[2021-07-30] MEDS: Benzonatate 100 MG Capsule 200 MG PO (22:14)
[2021-07-30 22:23] VITALS: PULSE 89; RESP 18
[2021-07-30] MEDS: Ipratropium/Albuterol Sulfate 3 ML AMPUL.NEB INHALATION (22:23)
== END 2021-07-30 23:00 | disposition home or self-care (01) ==
PROVIDERS: Emergency Provider Emergency Medicine; PCP Family Medicine; Visit Provider Emergency Medicine
DX: R05.9 Cough, unspecified (principal); E03.9 Hypothyroidism, unspecified
CPT/HCPCS: 94640; 99283

== ENCOUNTER → 2022-03-06 | Outpatient (CLI) | payer MEDICAID, SELFPAY ==
[2022-03-09 18:59] LABS: ANTINUCLEAR ANTIBODIES DIRECT Negative (Negative)
[2022-03-12 17:09] LABS: Anti-Cardiolipin Ab, IgA, Qn < 9 APL U/mL (0-11); Anti-Cardiolipin Ab, IgG, Qn < 9 GPL U/mL (0-14); Anti-Cardiolipin Ab, IgM, Qn 14 MPL U/mL (0-12)
== END | disposition home or self-care (01) ==
PROVIDERS: PCP Family Medicine
DX: T69.1XXA Chilblains, initial encounter (principal)
CPT/HCPCS: 86235; 86225; 36415; 82595; 86038; 86147

== ENCOUNTER 2024-04-14 10:33 | Emergency (ER) | payer MEDICAID, SELFPAY ==
[2024-04-14 10:35] VITALS: BP 144/105; PULSE 73; RESP 16; TEMP 36.4; O2SAT 100; BMI 20.5
--- NOTE | 2024-04-14 11:35 | EKG12_ITS ---
Test Reason : DIZZINESS Blood Pressure : */* mmHG Vent. Rate : 63 BPM Atrial Rate : 63 BPM P-R Int : 134 ms QRS Dur : 86 ms QT Int : 442 ms P-R-T Axes : 58 25 41 degrees QTcB Int : 452 ms Normal sinus rhythm Normal ECG Confirmed by KOURTNEY CATALAN, LETICIA ([id number]), city editor ANGELICA MALONE ([id number]) on 04/18/2024 7:19:13 AM Referred By: Confirmed By: LETICIA OCONNELL MD
--- NOTE | 2024-04-14 11:35 | CT_ITS ---
STUDY: CT BRAIN WITHOUT CONTRAST REASON FOR EXAM: Male, 63 years old. Dizziness for 2 days. RADIATION DOSAGE (If Supplied By Facility): CTDIvol = ( 44.99 ) mGy, DLP = ( 796.11 ) mGycm TECHNIQUE: Transaxial CT imaging of the brain was performed without administration of intravenous contrast material. Individualized dose optimization techniques were used for this CT. COMPARISON: No relevant priors. FINDINGS: Normal soft tissue structures. Normal calvarium. Normal size ventricles and extra-axial spaces for the patient''s age. Normal white matter tracts of the cerebral hemispheres. Normal basal ganglia and thalami. Normal brainstem. There is mild cerebellar atrophy. There is no intracranial hemorrhage. There are no findings of an acute ischemic infarction. Normal visualized paranasal sinuses. CT/Brain/Head without Contrast IMPRESSION: Mild cerebellar atrophy. Electronically Signed: Jovan Valdez MD at 12:56 EST ,
[2024-04-14 11:45] LABS: Absolute Neutrophil Count 3.2 X10^3/uL (2.0-7.7); Basophil# 0.01 X10^3/uL; Basophil% 0.2 % (0-1); Hematocrit 37.9 % (40-54); Hemoglobin 13.1 g/dL (13.0-16.5); Lymphocyte % 16.7 % (19-41); Mean Corp Hgb Conc 34.6 g/dL (32-36); Mean Corpuscular Hgb 32.4 pg (27.0-32.0); Mean Corpuscular Volume 93.8 fL (80-94); Mean Platelet Vol. 11.3 fl (6.2-12.0); Monocyte# 0.29 X10^3/uL; Monocyte% 6.9 % (0-10); NRBC Flagged by Analyzer 0 % (0-5); Neutrophil # 3.16 X10^3/uL (2.7-7.7); Neutrophil % 75.7 % (47-70); Platelet Count 111 K/mm3 (150-450); RBC Distribution Width CV 11.9 % (11.6-14.6); RBC Distribution Width SD 41.7 fl (35.1-43.9); Red Blood Count 4.04 M/mm3 (4.6-6.2); White Blood Count 4.2 K/mm3 (4.4-11.0)
[2024-04-14] MEDS: Meclizine HCl 25 MG Tablet PO (11:45)
[2024-04-14] MEDS: Ondansetron 4 MG/2 ML Vial IV (11:45)
--- NOTE | 2024-04-14 11:46 | EX.ED.DYSGE1 ---
HPI <SANTI Cho - Last Filed: 04/14/24 14:31> History of Present Illness Chief Complaint: Dizziness Narrative Narrative: Patient is 63-year-old male with history of hypothyroidism, history of thyroid cancer presents to the [facility] part for 2 days of dizziness. Patient states that yesterday morning, when he rolled over in bed, he continued to keep rolling, he felt dizzy, room spinning sensation, nausea. Patient states that it happened again this morning so he figured he would get it checked out. Patient states he is currently not symptomatic however feels slightly nauseous. Patient denies any difficulty ambulating, patient dates he is never had this before. Denies any headache or significant chest pain. PFSH <SANTI Cho - Last Filed: 04/14/24 14:31> PFSH Medical History Hypothyroid Home Medications ?Medication ?Instructions ?Recorded ?Last Taken ?Type cholecalciferol (vitamin D3) 1,250 50,000 unit PO Q14D 05/24/18 Unknown History mcg (50,000 unit) capsule levothyroxine 112 mcg tablet 112 mcg PO DAILY 05/24/18 Unknown History bacitracin 500 unit/gram eye 1 applic LEFT EYE Q8H 7 days #3.5 01/12/21 Unknown Rx ointment grams codeine 10 mg-guaifenesin 100 mg/5 10 ml PO Q6H PRN cough 5 days #200 07/30/21 Unknown Rx mL oral liquid mL prednisone 20 mg tablet 60 mg (3 x 20 mg) PO DAILY #12 07/30/21 Unknown Rx TABLETS meclizine 25 mg chewable tablet 25 mg PO TID #20 tabs 04/14/24 Unknown Rx (Antivert) ondansetron 4 mg disintegrating 4 mg PO Q8H PRN PRN Nausea #14 tabs 04/14/24 Unknown Rx tablet Allergy/AdvReac Type Severity Reaction Status Date / Time No Known Allergies Allergy Verified 04/14/24 10:38 Social History Smoking Status: Never smoker ROS <SANTI Cho - Last Filed: 04/14/24 14:31> ROS ED ROS Narrative Constitutional: Negative for fever, chills, weight loss, weakness Eyes: Negative for vision loss, vision change, double vision ENT: Negative for any sore throat, ear pain, congestion Cardiovascular: Negative for any chest pain, tightness, palpitations Respiratory: Negative for any cough, sputum production, hemoptysis, dyspnea, dyspnea on exertion, orthopnea Gastrointestinal: Negative for any abdominal pain, diarrhea, constipation, blood in stool, blood in vomit. Positive nausea and vomiting : Negative for any urinary frequency, dysuria, retention, blood in urine Muscle skeletal: Negative for any neck pain, back pain Neurological: Negative for any headache, syncope. Positive complaint of dizziness, room spinning Skin: Negative for any rashes, itching, abrasions, lacerations Psychiatric: Negative for any depression, anxiety, stress, suicidal ideation, homicidal ideation Hematologic: Negative for any excessive bruising, easy bleeding EXAM <SANTI Cho - Last Filed: 04/14/24 14:31> Physical Exam Narrative Exam Narrative: Vital signs reviewed. HEET: Head normocephalic atraumatic, TMs clear bilaterally. Posterior pharynx is clear, moist mucous membranes. Nares clear bilaterally. Neck: Supple with no lymphadenopathy or tenderness. No signs of meningismus. Cardiac: Regular rate and rhythm no murmurs gallops or rubs, equal peripheral pulses bilaterally. Respiratory: Lungs clear to auscultation bilaterally. No chest tenderness. Abdomen: Soft, nontender, nondistended. No abdominal bruit or pulsatile masses. No hepatosplenomegaly Extremities: No peripheral edema, no signs of gross trauma or deformity. Active full range of motion of all extremities. Neuro: Cranial nerves II through XII intact, no focal neurological deficits. Cecille-Hallpike was negative, patient did have slight nystagmus when looking to the right. However this was less than 2 seconds. Skin: Clean dry and intact with no rash, purpura, petechiae, vesicles or pustules. Backs/flank: No CVA tenderness, no midline spinal tenderness, no deformity. Psych: Normal mood and affect. No SI, HI or acute psychosis. Const Vital Signs: 04/14/24 10:35 04/14/24 12:35 04/14/24 14:00 Temperature 97.6 F L Temperature Source Oral Pulse Rate 73 59 L 59 L Respiratory Rate 16 13 12 Blood Pressure 144/105 H 112/75 142/87 H Blood Pressure Mean 118 87 105 Pulse Ox 100 100 100 Oxygen Delivery Method Room Air Room Air Room Air 04/14/24 15:29 Temperature 97.8 F Temperature Source Pulse Rate 68 Respiratory Rate 16 Blood Pressure 130/76 H Blood Pressure Mean 94 Pulse Ox 100 Oxygen Delivery Method Positive well nourished and well developed General Appearance ED: well developed <Dr. Srinivas Abarca DO - Last Filed: 04/14/24 15:48> Physical Exam Const Vital Signs: 04/14/24 10:35 04/14/24 12:35 04/14/24 14:00 Temperature 97.6 F L Temperature Source Oral Pulse Rate 73 59 L 59 L Respiratory Rate 16 13 12 Blood Pressure 144/105 H 112/75 142/87 H Blood Pressure Mean 118 87 105 Pulse Ox 100 100 100 Oxygen Delivery Method Room Air Room Air Room Air 04/14/24 15:29 Temperature 97.8 F Temperature Source Pulse Rate 68 Respiratory Rate 16 Blood Pressure 130/76 H Blood Pressure Mean 94 Pulse Ox 100 Oxygen Delivery Method MDM <SANTI Cho - Last Filed: 04/14/24 14:31> MDM Lab Data Labs: Laboratory Results - last 24 hr 04/14/24 11:21 WBC 4.2 L RBC 4.04 L Hgb 13.1 Hct 37.9 L MCV 93.8 MCH 32.4 H MCHC 34.6 RDW Std Deviation 41.7 RDW Coeff of Zoila 11.9 Plt Count 111 L MPV 11.3 Immature Gran % (Auto) 0.500 Neut % (Auto) 75.7 H Lymph % (Auto) 16.7 L [place] % (Auto) 6.9 Eos % (Auto) 0.0 Baso % (Auto) 0.2 Absolute Neuts (auto) 3.2 Absolute Lymphs (auto) 0.70 L Nucleated RBC % 0 Sodium 140 Potassium 4.1 Chloride 108 H Carbon Dioxide 28.0 Anion Gap 4 L BUN 21 H Creatinine 0.85 Estim Creat Clear Calc 80.36 Est GFR (MDRD) Af Amer 117 Est GFR (MDRD) Non-Af 97 BUN/Creatinine Ratio 24.6 H Glucose 98 Calcium 9.0 Troponin I High Sens 6 Radiography Diagnostic Testing: Clinical Impression(s) from Imaging Studies Brain CT 04/14/24 11:35 IMPRESSION: Mild cerebellar atrophy. Electronically Signed: Jovan Valdez MD at 12:56 EST , EKG Normal sinus rhythm: Attestation: I personally reviewed and interpreted this EKG as follows: Interpretation: Sinus Rhythm Comments: Normal sinus rhythm, rate 63 bpm, TN interval 134 ms, QRS duration 86 ms, no acute ST elevation, no acute infarct noted. Treatment and Re-Evaluation :: Differential diagnosis includes however is not limited to: Benign positional peripheral vertigo, central vertigo, CVA, TIA electrode abnormality, brain mass, anxiety Patient appears generally well, vital signs are stable, patient is nontoxic-appearing. Presenting to the emergency department for 2 episodes of room spinning sensation that lasted less than 10 minutes. Patient he still feels nauseous. Patient will receive a CT scan of the brain, basic laboratory values. Zofran Antivert will be given. Patient will need to be reevaluated. Goldfield-Hallpike was negative, I have low suspicion for any central cause or CVA. Patient is extremely nervous about this, I do believe that this is playing a part of his symptoms. All radiologic examinations were read, reviewed by the emergency department attending. From these reads, a plan of care will be put in place. Patient states that he was feeling well until he laid down to go to CAT scan, then he felt the same way again. This does seem like positional peripheral vertigo. Patient was offered Valium however refused. Patient CT scan shows mild cerebellar atrophy, no other acute process. Laboratory values show slight leukopenia with a white blood cell count of 4.2 this seems to be baseline. Hemoglobin 13.1 which is stable, chemistries were unremarkable. Troponin was negative. EKG was unremarkable. At this time, is no evidence of any CVA, ACS or ID. I spoke with the patient at length, he states he still has intermittent feeling of dizziness and nausea. However patient is ambulatory. At this time, I spoke with the patient at length regarding multiple treatments. I do not believe that there is a central cause. Believe this is positional. He will continue take the Antivert, nausea medicine. Instructed to follow-up with ENT as well as his PCP. All questions were answered, stable for discharge. <Dr. Srinivas Abarca, DO - Last Filed: 04/14/24 15:48> [facility] History & Record Review Discussion w/independent historian: Patient Lab Data Labs: Laboratory Results - last 24 hr 04/14/24 11:21 WBC 4.2 L RBC 4.04 L Hgb 13.1 Hct 37.9 L MCV 93.8 MCH 32.4 H MCHC 34.6 RDW Std Deviation 41.7 RDW Coeff of Zoila 11.9 Plt Count 111 L MPV 11.3 Immature Gran % (Auto) 0.500 Neut % (Auto) 75.7 H Lymph % (Auto) 16.7 L [place] % (Auto) 6.9 Eos % (Auto) 0.0 Baso % (Auto) 0.2 Absolute Neuts (auto) 3.2 Absolute Lymphs (auto) 0.70 L Nucleated RBC % 0 Sodium 140 Potassium 4.1 Chloride 108 H Carbon Dioxide 28.0 Anion Gap 4 L BUN 21 H Creatinine 0.85 Estim Creat Clear Calc 80.36 Est GFR (MDRD) Af Amer 117 Est GFR (MDRD) Non-Af 97 BUN/Creatinine Ratio 24.6 H Glucose 98 Calcium 9.0 Troponin I High Sens 6 Radiography Diagnostic Testing: Clinical Impression(s) from Imaging Studies Brain CT 04/14/24 11:35 IMPRESSION: Mild cerebellar atrophy. Electronically Signed: Jovan Valdez MD at 12:56 EST , Treatment and Re-Evaluation :: Differential diagnosis includes however is not limited to: Benign positional peripheral vertigo, central vertigo, CVA, TIA electrode abnormality, brain mass, anxiety Patient appears generally well, vital signs are stable, patient is nontoxic-appearing. Presenting to the emergency department for 2 episodes of room spinning sensation that lasted less than 10 minutes. Patient he still feels nauseous. Patient will receive a CT scan of the brain, basic laboratory values. Zofran Antivert will be given. Patient will need to be reevaluated. Goldfield-Hallpike was negative, I have low suspicion for any central cause or CVA. Patient is extremely nervous about this, I do believe that this is playing a part of his symptoms. All radiologic examinations were read, reviewed by the emergency department attending. From these reads, a plan of care will be put in place. Patient states that he was feeling well until he laid down to go to CAT scan, then he felt the same way again. This does seem like positional peripheral vertigo. Patient was offered Valium however refused. Patient CT scan shows mild cerebellar atrophy, no other acute process. Laboratory values show slight leukopenia with a white blood cell count of 4.2 this seems to be baseline. Hemoglobin 13.1 which is stable, chemistries were unremarkable. Troponin was negative. EKG was unremarkable. At this time, is no evidence of any CVA, ACS or ID. I spoke with the patient at length, he states he still has intermittent feeling of dizziness and nausea. However patient is ambulatory. At this time, I spoke with the patient at length regarding multiple treatments. I do not believe that there is a central cause. Believe this is positional. He will continue take the Antivert, nausea medicine. Instructed to follow-up with ENT as well as his PCP. All questions were answered, stable for discharge. I have personally performed a face to face assessment of the patient and have reviewed the KARAN Note. I performed a substantive portion of the visit including all aspects of the following. My jane findings include: History is 63-year-old male rolled over in bed yesterday and had sudden onset of dizziness. This occurred again today and he feels worse with movement. He has not had this problem before. He denies any headache or recent URI symptoms. No arm or leg symptoms. No diplopia no dysarthria no dysphagia Exam is patient appears quite anxious. There is a very slight nystagmus. Ear canal and tympanic membranes appear normal. He is worse when laying that he attempts to move in any direction. Medical Decison Making differential diagnosis includes BPPV cerebellar stroke vestibular neuritis labyrinth-itis M?ni?re's disease CT head is negative.. He is in normal sinus rhythm with patient received meclizine. He stated that his symptoms [place] worse when he was asked to move over to the CT table and lay down. He does not want Valium. The patient is extremely anxious and feels that his life is over that he is never going to do anything again. Does not feel good enough to go home. However were trying to give him some Valium to see if this helps but he does not want it because he states he needs to drive home. I do think that his symptoms are not stroke related and that he should improve with time. We talked about admission but he would like to go home. Discharge Plan Triage Chief Complaint: Dizziness ED Midlevel Provider: Rao Trujillo ED Provider: Srinivas Abarca Dx/Rx/DC Orders Instructions: ED BPV Vertigo Prescriptions: New meclizine [Antivert] 25 mg tablet,chewable 25 mg PO TID Qty: 20 0RF ondansetron 4 mg tablet,disintegrating 4 mg PO Q8H PRN PRN (Reason: Nausea) Qty: 14 0RF No Action levothyroxine 112 MCG tablet 112 mcg PO DAILY cholecalciferol (vitamin D3) 50,000 UNIT capsule 50,000 unit PO Q14D bacitracin 500 unit/gram ointment 1 applic LEFT EYE Q8H 7 Days Qty: 3.5 0RF prednisone 20 MG tablet 60 mg PO DAILY Qty: 12 0RF codeine-guaifenesin 10-100 mg/5 mL liquid 10 ml PO Q6H PRN (Reason: cough) 5 Days Qty: 200 0RF Primary Care Provider: Morris Sheets Referrals: Morris Sheets MD [Primary Care Provider] - Shivam Berman MD [Med Staff - Active Staff] - Activity Restrictions/Additional Instructions: Take the Antivert as needed for symptoms of dizziness. The Zofran is for nausea. Print Language: Tuvaluan Disposition Disposition: Home, Self Care Discharge Date/Time: 04/14/24 15:30
[2024-04-14 12:12] LABS: Anion Gap 4 (5-15); BUN 21 mg/dL (7-18); BUN/Creat Ratio 24.6 RATIO (10-20); Chloride 108 mmol/L (98-107); Creatinine, Serum 0.85 mg/dL (0.70-1.30); EST Glomerular Filtration Rate 97 mL/min (>60); Est Glom Filt Rate - Afr Amer 117 mL/min (>60); Estimated Creatinine Clearance 80.36 ml/min; Glucose 98 mg/dL (74-106); Potassium 4.1 mmol/L (3.5-5.1); Sodium Level 140 mmol/L (136-145); Troponin-I HS 6 pg/mL (3.0-78.0)
[2024-04-14 12:35] VITALS: BP 112/75; PULSE 59; RESP 13; O2SAT 100
[2024-04-14 14:00] VITALS: BP 142/87; PULSE 59; RESP 12; O2SAT 100
--- NOTE | 2024-04-14 15:25 | ED.RN ---
Patient concerned about how he is going to handle this new diagnosis. Patient declined Valium and Zofran. He states that he has no one to help him. When asked how this nurse could help him he stated that he just wanted to go home.
[2024-04-14 15:29] VITALS: BP 130/76; PULSE 68; RESP 16; TEMP 36.6; O2SAT 100
== END 2024-04-14 15:30 | disposition home or self-care (01) ==
PROVIDERS: Nurse Practitioner; Emergency Provider Emergency Medicine; PCP Family Medicine; Visit Provider Emergency Medicine
DX: R42 Dizziness and giddiness (principal); Z85.850 Personal history of malignant neoplasm of thyroid; E03.9 Hypothyroidism, unspecified; Z79.890 Hormone replacement therapy
CPT/HCPCS: 70450; 80048; 84484; 85025; 93005; 96374; 99283; A4216; J2405